=== PATIENT | male | born 1985 | race African-American/Black ===

== ENCOUNTER 2017-10-05 19:14 | Emergency (ER) | payer OTHER ==
[~2017-10-05] VITALS: Ht 162.6 cm; Wt 61.5 kg
[2017-10-05] MEDS ORDERED: KETOROLAC TROMETHAMINE 60 MG/2 ML VIAL IM ONE (20:15)
[2017-10-05 20:52] VITALS: BP 148/92
== END 2017-10-05 20:55 | disposition home or self-care (01) ==
LOC: EMS 19:17
DX: S29.012A Strain of muscle and tendon of back wall of thorax, initial encounter (principal); V49.49XA Driver injured in collision with other motor vehicles in traffic accident, initial encounter; Y93.89 Activity, other specified; Y92.89 Other specified places as the place of occurrence of the external cause; Y99.8 Other external cause status
CPT/HCPCS: 96372; 99283; J1885

== ENCOUNTER 2021-07-29 08:32 | Emergency (ER) | payer SELFPAY ==
[~2021-07-29] VITALS: Ht 162.6 cm; Wt 90.9 kg
[2021-07-29] MEDS ORDERED: LIDOCAINE 5% TRANSDERMAL PATCH TD ONE (09:00)
[2021-07-29] MEDS ORDERED: ACETAMINOPHEN 500 MG TABLET PO ONE (09:00)
[2021-07-29] MEDS ORDERED: IBUPROFEN 600 MG TABLET PO ONE (09:00)
[2021-07-29 09:26] VITALS: BP 123/68
== END 2021-07-29 09:36 | disposition home or self-care (01) ==
LOC: EMS 08:38
DX: S29.012A Strain of muscle and tendon of back wall of thorax, initial encounter (principal); S16.1XXA Strain of muscle, fascia and tendon at neck level, initial encounter; V49.9XXA Car occupant (driver) (passenger) injured in unspecified traffic accident, initial encounter; Y93.89 Activity, other specified; Y92.488 Other paved roadways as the place of occurrence of the external cause; Y99.8 Other external cause status
CPT/HCPCS: 99284; Z7502; Z7610

== ENCOUNTER 2021-08-02 08:43 | Emergency (ER) | payer MEDICAID ==
[~2021-08-02] VITALS: Ht 162.6 cm; Wt 90.9 kg
[2021-08-02] MEDS ORDERED: ACETAMINOPHEN/CODEINE 300-30 MG TABLET PO ONE (09:30)
[2021-08-02] MEDS ORDERED: METHOCARBAMOL 750 MG TABLET PO ONE (09:30)
[2021-08-02] MEDS ORDERED: KETOROLAC TROMETHAMINE 60 MG/2 ML VIAL IM ONE (09:30)
[2021-08-02 10:48] VITALS: BP 132/68
== END 2021-08-02 11:28 | disposition home or self-care (01) ==
LOC: EMS 08:45
DX: S29.012A Strain of muscle and tendon of back wall of thorax, initial encounter (principal); S16.1XXA Strain of muscle, fascia and tendon at neck level, initial encounter; S39.012A Strain of muscle, fascia and tendon of lower back, initial encounter; V49.9XXA Car occupant (driver) (passenger) injured in unspecified traffic accident, initial encounter; Y93.89 Activity, other specified; Y92.488 Other paved roadways as the place of occurrence of the external cause; Y99.8 Other external cause status
CPT/HCPCS: 72040; 72070; 72100; 96372; 99284; J1885

== ENCOUNTER 2022-08-01 16:19 | Emergency (ER) | payer MEDICAID, OTHER ==
[~2022-08-01] VITALS: Ht 167.6 cm; Wt 98.6 kg
[~2022-08-01 16:19] MED LIST: DEXA4 PO
[2022-08-01 18:47] VITALS: BP 144/78
[2022-08-01 19:52] LABS: ANION GAP 6 mmol/L (8-16); CALCIUM, TOTAL 9.3 mg/dL (8.8-10.5); CARBON DIOXIDE 29 mmol/L (22-29); CHLORIDE 102 mmol/L (98-107); CREATININE 1.05 mg/dL (0.60-1.30); GLOMERULAR FILTR. RATE CALC > 60 mL/min (>60); GLUCOSE,RANDOM 101 mg/dL (70-110); POTASSIUM 3.7 mmol/L (3.5-5.1); SODIUM SERUM 137 mmol/L (136-145); UREA NITROGEN, BLOOD 10 mg/dL (7-18)
== END 2022-08-01 21:38 | disposition home or self-care (01) ==
LOC: EMS 16:23
DX: Z13.9 Encounter for screening, unspecified (principal); F10.20 Alcohol dependence, uncomplicated
CPT/HCPCS: 80048; 99283